=== PATIENT | female | born 2000 | race Caucasian/White ===

== ENCOUNTER 2023-11-25 14:26 | Emergency (ER) | payer BC, SELFPAY ==
[2023-11-25 14:37] VITALS: BP 133/90
[2023-11-25 15:05] LABS: % Basophils 0.6 % (0-2); % Eosinophils 4.2 % (0-6); % Immature Granulocytes 0.3 % (0-0.5); % Lymphocytes 25.8 % (20.5-51.1); % Monocytes 6.6 % (1.7-9.3); % Neutrophils 62.5 % (42.2-75.2); Absolute Basophils 0.1 10^3/uL (0-0.2); Absolute Eosinophils 0.3 10^3/uL (0-0.7); Absolute Monocytes 0.5 10^3/uL (0.1-0.6); Absolute Neutrophils 4.9 10^3/uL (1.4-6.5); Hematocrit 39.2 % (37.0-47.0); Hemoglobin 13.9 g/dL (12.0-16.0); Mean Corp Hgb Conc. 35.5 g/dL (33.0-37.0); Mean Corpuscular Hgb 31.4 pg (27.0-31.0); Mean Corpuscular Volume 88.5 fL (81.0-99.0); Mean Platelet Volume 10.7 fL (7.4-10.4); Nucleated Red Blood Cells % 0 %; Platelet Count 262 10^3/uL (130-400); Red Blood Cell Count 4.43 10^6/uL (4.20-5.40); Red Cell Dist. Width 11.9 % (11.5-14.5); White Blood Cell Count 7.9 10^3/uL (4.8-10.8)
[2023-11-25 15:15] LABS: INR 0.97; PT 12.9 Sec (11.4-14.6)
[2023-11-25 15:16] LABS: APTT 26.8 Sec (23.4-35.0)
[2023-11-25 15:23] LABS: ALT (SGPT) 17 U/L (0-35); AST (SGOT) 23 U/L (14-36); Albumin 4.6 g/dl (3.5-5.0); Alkaline Phosphatase 59 U/L (38-126); Blood Urea Nitrogen 18 mg/dl (7-17); Calcium 10.2 mg/dl (8.4-10.2); Carbon Dioxide 22 mmol/L (22-30); Chloride 105 mmol/L (98-107); Glucose 95 mg/dl (70-99); Potassium 4.2 mmol/L (3.5-5.1); Sodium 141 mmol/L (135-145); Total Bilirubin 0.4 mg/dl (0.2-1.3); Total Protein 7.3 g/dl (6.3-8.2); eGFR > 60.00
[2023-11-25 16:48] LABS: D-Dimer 1.08 ug/mlFEU (0.00-0.50)
[2023-11-25 17:13] VITALS: BP 129/93
[2023-11-25] MEDS: TORADOL 15 MG IV (17:27)
[2023-11-25 18:00] VITALS: BP 127/73
--- NOTE | 2023-11-25 19:16 | ED.GENMED ---
History of Present Illness
General
Chief Complaint: Breathing Problem
Source: patient
Exam Limitations: none
Time Seen by Provider: 11/25/23 16:50
Nursing documentation reviewed up to this point in time: agreed with
History of Present Illness
History of Present Illness:
23 y/o F with h/o transgender M->F
on hormones
here with R pleuritic lower chest pain x 2-3 days with sob
she has also had worse pain with deep breathing and eating
she has not had fever, couh, coldsypmtoms, swelling, trauma, rash, nauesa, vomting, diarrhea
noting tkaen for pain
tried inahler which didn't help
she feels pain worse with movement of her trunk
no trauma
no rash
Past History
Past History
ED Past Medical History: Asthma
Social History
Tobacco: Non-smoker
Alcohol: None
Drug: None
Personal: Single
Living: with family
Review of Systems
Review of Systems
Allergies reviewed?: Yes
All Other Systems: Not applicable
Phy Exam
Physical Exam
Physical Exam:
GENERAL: Alert , in no apparent distress
EYE: pupils equal and reactive
NECK: Supple
ENT: o/p clr, mmm.
CARDIAC: Regular rate and rhythm .
chest wall: no tenderness to R lower ribs
no redness, rash
LUNGS: Clear breath sounds bilaterally, no acute respiratory distress, no wheezes/rales/rhonchi, slight pain with deep breathing but no splinting
ABDOMEN: Soft, without focal tenderness, no r/g, no cvat, normal bowel sounds
neg mikayla's
NEUROLOGICAL: Alert and oriented, no focal neuro deficits
SKIN: Warm and dry, skin intact.
MUSCULOSKELETAL: No edema, well perfused. neg liana's sign
PSYCH: Normal and appropriate interaction.
Course
Orders/Labs/Results
Orders:
Orders
11/25/23 14:44
ECG [Electrocardiogram (*1)] Urgent
Reason for Study: Shortness of Breath
EKG- Treatment ONCE
11/25/23 14:54
Complete Blood Count/With Diff Urgent
Comprehensive Metabolic Panel Urgent
D-Dimer Urgent
Comment: ADD ON
PTT Urgent
Prothrombin Time Urgent
11/25/23 16:32
Add On- LAB Urgent
Tests Added?: d-dimer
11/25/23 17:18
CT Chest Pe Study Urgent
Comment:
Reason For Exam: d dimer pos, pleuritic cp, M->F transgend
US Abdomen Complete/Upper Urgent
Comment:
Reason For Exam: ruq pain
11/25/23 17:24
Ketorolac [Toradol] 15 mg IV NOW STA
Abnormal Lab Results
11/25/23
14:54
MCH 31.4 H pg
(27.0-31.0)
MPV 10.7 H fL
(7.4-10.4)
D-Dimer 1.08 H ug/mlFEU
(0.00-0.50)
BUN 18 H mg/dl
(7-17)
Creatinine 1.1 H mg/dL
(0.6-1.0)
11/25/23 14:54
11/25/23 14:54
Vital Signs
Initial and Last Documented VS:
Initial Vital Signs
Temp Pulse Resp BP Pulse Ox
98.3 F 84 16 133/90 96
11/25/23 14:37 11/25/23 14:37 11/25/23 14:37 11/25/23 14:37 11/25/23 14:37
Last Documented Vital Signs
Temp Pulse Resp BP Pulse Ox
98.3 F 78 15 127/73 97
11/25/23 14:37 11/25/23 18:15 11/25/23 18:00 11/25/23 18:00 11/25/23 18:15
MDM/Problems Addressed
Differential Diagnosis Includes:
PE, costochondritis, cholelithiasis, chest wall pain
MDM/Problems Addressed:
23 y/o F
sob for a few days with pleuritic pain
no rash, fever, cough, nausea
pain worse with deep breathinga nd movement
on meds for transgender
hormones
not tachy, tachypneic, not hypoxic
ekg nonischemic
wbc normal
trop nneg
lfts normal
d dimer elevated
ct neg for pe
subtle atelectasis bases
us some mild liver dz
d/w pcp regarding hormones and mild liver change
but likely cause of pain is MSK
nsaids
albuterol prn
return precautions
*Critical Care Note
Total Time (30-74mins, 75-104mins- exclusive of procedures): Not Applicable
ED Attending Note
-
Portions of this chart may have been created with voice recognition software.� Occasional wrong word or��sound alike� substitutions may have occurred due to the inherent limitations of voice recognition software.
Discharge Plan
Departure
Patient Disposition: Home (Routine Discharge)
Date of Disposition: 11/25/23
Time of Disposition: 19:27
Patient with high blood pressure during this ER visit?: No
Condition: Fair
Covid-19: Not Applicable
Discharge Problem:
Acute costochondritis
Instructions: Costochondritis
Referrals:
Too Walton MD [Family Provider] - Follow up in 2-3 days
Activity Restrictions/Additional Instructions:
Your CAT scan and ultrasound do not show any significant causes for your pain. You had no blood clots. You had no gallstones. Incidentally you do have a slightly fatty liver. This does not cause pain. It actually is unlikely to be caused by
your hormones but it could be diet related
discuss with your doctor
take mtorin every 8 hours with food 600 mg for pain for 3-5 days
follow up with your doctor
return for anyc oncerns
Interventions
Interventions:
*Risk Screen - Suicide Last Done: 11/25/23 17:11
*General Assessment Last Done: 11/25/23 17:11
*Neglect/Abuse Screening Last Done: 11/25/23 17:11
*ED COVID-19 Vaccine History Last Done: 11/25/23 17:11
*Nursing Disposition Last Done: 11/25/23 20:01
ED- Cardiac Assessment Last Done: 11/25/23 17:11
ED- Pulmonary Assessment Last Done: 11/25/23 17:11
Discharge Date and Time
Discharge Date/Time: 11/25/23 20:02
Print Language: MACEDONIAN
== END 2023-11-25 20:02 | disposition home or self-care (01) ==
LOC: EMR 14:26
PROVIDERS: EMERGENCY PHYSICIAN Student in an Organized Health Care Education/Training Program; FAMILY PHYSICIAN Family Medicine
DX: M94.0 Chondrocostal junction syndrome [Tietze] (principal); R10.11 Right upper quadrant pain; K76.0 Fatty (change of) liver, not elsewhere classified; F64.0 Transsexualism; J45.909 Unspecified asthma, uncomplicated
CPT/HCPCS: 99284; 96374; 71275; 76700; 80053; 85025; 85379; 85610; 85730; 93005; Q9967